=== PATIENT | female | born 1980 | race Caucasian/White ===

== ENCOUNTER 2016-12-23 18:18 | Emergency (ER) | payer MEDICAID, OTHER ==
[~2016-12-23] VITALS: Ht 149.9 cm; Wt 86.0 kg
[2016-12-23 18:45] VITALS: Ht 149.9 cm; Wt 86.0 kg
[2016-12-23 20:57] LABS: URINE BLOOD (Dip) POC Trace-intact (NEGATIVE)
[2016-12-23] MEDS ORDERED: ONDANSETRON (ODT) 4 MG TAB ODT STA (21:06)
--- NOTE | 2016-12-23 21:24 | ERD ---
ER Documentation Chief Complaint Date/Time DATE: 12/23/16 TIME: 21:21 Chief Complaint bilateral abd pain with sob x 2 days HPI This is a 36-year-old female who presents the emergency department today complaining of abdominal pain for the past 4 days and vomiting for the past 2 days. States her last bowel movement was today. Denies any dysuria. She has not taken any medication for the pain. . States she had her gallbladder removed in 2008. States that she lives in [place] Tuesday she went to [facility] they did laboratory work but did not tell her anything about her results. States she has drank some tea and Pedialyte. Denies any fevers or chills. Denies any cough. ROS All systems reviewed and are negative except as per history of present illness. Medications Home Meds Active Scripts Famotidine* (Pepcid*) 20 Mg Tablet, 20 MG PO BID for 14 Days, TAB Prov:SHANTA CAMPBELL PA-C 12/23/16 Ondansetron Hcl* (Zofran*) 4 Mg Tablet, 4 MG PO Q6H for NAUSEA AND/OR VOMITING, #30 TAB Prov:SHANTA CAMPBELL PA-C 12/23/16 Polyethylene Glycol* (Miralax*) 17 Gm Powd.pack, 17 GM PO DAILY, #10 Prov:SHANTA CAMPBELL PA-C 12/23/16 Hydrocodone/Acetaminophen (Cocoa 5-325 Tablet) 1 Each Tablet, 1 TAB PO Q6H Y for PAIN, #10 TAB Prov:SHANTA CAMPBELL PA-C 12/23/16 Reported Medications [None] No Conflict Check 10/17/10 Allergies Allergies: Coded Allergies: No Known Drug Allergy (Verified Allergy, Unknown, NONE, 12/23/16) PMhx/Soc History of Surgery: Yes (CSECTION, GALLBLADDER) Anesthesia Reaction: No Hx Neurological Disorder: No Hx Respiratory Disorders: No Hx Cardiac Disorders: No Hx Psychiatric Problems: No Hx Miscellaneous Medical Probl: No Hx Alcohol Use: No Hx Substance Use: No Hx Tobacco Use: No Smoking Status: Never smoker Physical Exam Vitals Vital Signs Date Time Temp Pulse Resp B/P Pulse Ox O2 Delivery O2 Flow Rate FiO2 12/23/16 18:45 98.2 97 17 109/58 97 Physical Exam Const: Obese, no acute distress Head: Atraumatic Eyes: Normal Conjunctiva ENT: Normal External Ears, Nose and Mouth. Neck: Full range of motion..~ No meningismus. Resp: Clear to auscultation bilaterally Cardio: Regular rate and rhythm, no murmurs Abd: Soft, epigastric, right upper quadrant, periumbilical tenderness non distended. Normal bowel sounds. No tenderness at McBurney's. Skin: No petechiae or rashes Back: No midline or flank tenderness. No CVA tenderness. Ext: No cyanosis, or edema Neur: Awake and alert Psych: Normal Mood and Affect Result Diagram: 12/23/16211412/23/162114 Results 24 hrs Laboratory Tests Test 12/23/16 20:55 12/23/16 20:57 12/23/16 21:15 Urine Color LT. YELLOW Urine Clarity CLEAR Urine pH 6.0 Urine Specific Helen 1.015 Urine Ketones NEGATIVE Urine Nitrite NEGATIVE Urine Bilirubin NEGATIVE Urine Urobilinogen 1.0 E.U./dL Urine Leukocyte Esterase NEGATIVE Urine Microscopic RBC 0-2/HPF Urine Microscopic WBC NONE SEEN/HPF Urine Squamous Epithelial Cells FEW Urine Calcium Oxalate Crystals MODERATE Urine Hemoglobin TRACE Urine Glucose NEGATIVE% Urine Total Protein NEGATIVE Bedside Urine pH (LAB) 7.0 Bedside Urine Protein (LAB) Negative Bedside Urine Glucose (UA) Negative Bedside Urine Ketones (LAB) Negative Bedside Urine Blood Trace-intact Bedside Urine Nitrite (LAB) Negative Bedside Urine Leukocyte Esterase (L Negative White Blood Count 10.710^3/ul Red Blood Count 4.2110^6/ul Hemoglobin 12.2g/dl Hematocrit 36.6% Mean Corpuscular Volume 86.9fl Mean Corpuscular Hemoglobin 29.0pg Mean Corpuscular Hemoglobin Concent 33.3g/dl Red Cell Distribution Width 13.1% Platelet Count 63561^3/UL Mean Platelet Volume 9.6fl Neutrophils % 58.3% Lymphocytes % 29.1% Monocytes % 9.6% Eosinophils % 2.1% Basophils % 0.5% Nucleated Red Blood Cells % 0.0/100WBC Neutrophils # 6.310^3/ul Lymphocytes # 3.110^3/ul Monocytes # 1.010^3/ul Eosinophils # 0.210^3/ul Basophils # 0.110^3/ul Nucleated Red Blood Cells # 0.010^3/ul Sodium Level 141mmol/L Potassium Level 4.1mmol/L Chloride Level 101mmol/L Carbon Dioxide Level 27mmol/L Anion Gap 17 Blood Urea Nitrogen 16mg/dl Creatinine 0.76mg/dl Glucose Level 101mg/dl Calcium Level 9.5mg/dl Total Bilirubin 0.2mg/dl Direct Bilirubin 0.00mg/dl Indirect Bilirubin 0.2mg/dl Aspartate Amino Transf (AST/SGOT) 39IU/L Alanine Aminotransferase (ALT/SGPT) 49IU/L Alkaline Phosphatase 79IU/L Total Protein 7.2g/dl Albumin 4.1g/dl Globulin 3.10g/dl Albumin/Globulin Ratio 1.32 Lipase 101U/L Current Medications Medications (Trade) Dose Ordered Sig/Aziza Route PRN Reason Start Time Stop Time Status Last Admin Dose Admin Famotidine (Pepcid) 20 mg ONCE ONCE PO 12/23/16 21:30 12/23/16 21:31 DC 12/23/16 21:15 Ondansetron HCl (Zofran Odt) 4 mg ONCE STAT ODT 12/23/16 21:06 12/23/16 21:08 DC 12/23/16 21:15 Acetaminophen/ Hydrocodone Bitart (Cocoa (5/325)) 1 tab ONCE ONCE PO 12/23/16 21:30 12/23/16 21:31 DC 12/23/16 21:15 DIAGNOSTIC IMAGING REPORT Patient: KIMBERLEE TORRES : 1980 Age: 36 Sex: F MR #: [id number] DOS: 12/23/162107 Ordering MD: SHANTA CAMPBELL PA-C Location: [facility] Room/Bed: PROCEDURE: CT abdomen and pelvis without intravenous contrast. CLINICAL INDICATION: Pain. TECHNIQUE: CT of the abdomen/pelvis was performed utilizing axial images with reconstructions in sagittal and coronal planes. The administered radiation dose is CTDI 20 mGy, DLP 1130 mGy-cm. COMPARISON: No pertinent prior examinations were submitted for comparison. FINDINGS: Visualized Chest: The visualized lung bases are clear. Abdomen: The spleen, pancreas, and adrenal glands are unremarkable. The liver is markedly, diffusely decreased in attenuation, compatible with hepatic steatosis. Prior cholecystectomy is noted. The kidneys are without hydronephrosis. Bilateral medullary calcinosis is noted along with numerous small and punctate nonobstructive intrarenal calculi. There is no evidence of bowel obstruction. The appendix is normal. No intra- abdominal free air is seen. There is no evidence of intra-abdominal adenopathy or free fluid. Pelvis: There is no evidence of pelvic adenopathy. The uterus and ovaries are without enlargement. The urinary bladder is unremarkable. There is no pelvic free fluid. Osseous structures: Unremarkable. IMPRESSION: No acute findings. Hepatic steatosis. Bilateral medullary calcinosis. Bilateral nephrolithiasis. RPTAT: HIKT .Masoud Rivers MD, MD Date Time Electronically viewed and signed by .Masoud Rivers MD, MD on 12/23/2016 22:17 .T/ CC: SHANTA CAMPBELL PA-C Procedures/[facility] This is a 36-year-old female who presents the emergency department today complaining of diffuse abdominal pain for the past 4 days as well as vomiting. Patient has been to an outside hospital and had laboratory work drawn yesterday however she was not told about any results. Patient had epigastric and right upper quadrant tenderness on physical exam as well as periumbilical tenderness. I did obtain laboratory work as well as a CT abdomen pelvis noncontrast. Patient already has history of a cholecystectomy. Laboratory work shows no elevated white blood cell count. Her hemoglobin is within normal limits. Platelets are within normal limits. Electrolytes are within normal limits. Glucose is within normal limits. Liver functions normal limits. Lipase within normal limits. UA is negative for infection per Urine test is negative. CT abdomen pelvis noncontrast shows no acute findings. There is hepatic steatosis and bilateral medullary calcinosis with bilateral small punctate nonobstructive intrarenal calculi. Appendix is normal. No evidence of bowel obstruction. No free air seen. No free fluid. There is no evidence of pelvic adenopathy. Uterus and ovaries are without enlargement. No pelvic free fluid. Patient has abdominal pain of uncertain etiology however it may also be viral related versus gastritis. Low suspicion for acute surgical abdomen. Patient was given Cocoa, Pepcid and Zofran here in the emergency department. I will give her prescription for home. At this time the patient is stable for discharge and outpatient management. Patient should follow up with their PCP in the next 1-2 days. They may return to the emergency department sooner for any persistent or worsening of symptoms. Patient understood and agreed with the plan. Departure Diagnosis: Primary Impression: Abdominal pain Abdominal location: generalized Qualified Code: R10.84 - Generalized abdominal pain Condition: Fair SHANTA CAMPBELL PA-C Dec 23, 2016 21:24
[2016-12-23] MEDS ORDERED: FAMOTIDINE 20 MG TAB PO ONE (21:30)
[2016-12-23] MEDS ORDERED: HYDROCODONE/APAP (5/325) TAB PO ONE (21:30)
[2016-12-23 21:44] LABS: ADD SCAN DIFF NO
[2016-12-23 21:46] LABS: BASOPHIL # 0.1 10^3/ul (0.0-0.1); BASOPHILS % 0.5 % (0.0-2.0); EOSINOPHILS # 0.2 10^3/ul (0.0-0.5); EOSINOPHILS % 2.1 % (0.0-7.0); HEMATOCRIT 36.6 % (37.0-47.0); HEMOGLOBIN 12.2 g/dl (12.0-16.0); LYMPHOCYTES # 3.1 10^3/ul (0.8-2.9); LYMPHOCYTES % 29.1 % (15.0-51.0); MEAN CORPUSCULAR HGB CONC 33.3 g/dl (32.0-37.0); MEAN CORPUSCULAR VOLUME 86.9 fl (82.0-101.0); MEAN PLATELET VOLUME 9.6 fl (7.4-10.4); MONOCYTES % 9.6 % (0.0-11.0); NEUTROPHIL # 6.3 10^3/ul (1.6-7.5); NEUTROPHILS % 58.3 % (39.0-77.0); PLATELET COUNT 334 10^3/UL (140-415); RED BLOOD COUNT 4.21 10^6/ul (4.20-5.40); RED CELL DISTRIBUTION WIDTH 13.1 % (11.5-14.5); WHITE BLOOD COUNT 10.7 10^3/ul (4.8-10.8)
[2016-12-23 22:02] LABS: ALBUMIN 4.1 g/dl (3.3-4.9); POTASSIUM 4.1 mmol/L (3.5-5.1)
[2016-12-23 22:04] LABS: BILIRUBIN,INDIRECT 0.2 mg/dl (0-1.1); BILIRUBIN,TOTAL 0.2 mg/dl (0.2-1.3); CREATININE 0.76 mg/dl (0.44-1.00)
[2016-12-23 22:05] LABS: ALBUMIN/GLOBULIN RATIO 1.32; CALCIUM 9.5 mg/dl (8.4-10.2); TOTAL PROTEIN 7.2 g/dl (6.1-8.1)
[2016-12-23 22:10] LABS: ADD UMIC YES; URINE BILIRUBIN (Dip) NEGATIVE (NEGATIVE); URINE BLOOD (Dip) TRACE (NEGATIVE); URINE COLOR LT. YELLOW (YELLOW); URINE GLUCOSE (Dip) NEGATIVE (NEGATIVE); URINE KETONES (Dip) NEGATIVE (NEGATIVE); URINE LEUKOCYTE ESTERASE (Dip) NEGATIVE (NEGATIVE); URINE NITRITE (Dip) NEGATIVE (NEGATIVE); URINE TOTAL PROTEIN (Dip) NEGATIVE (NEGATIVE); URINE UROBILINOGEN (Dip) 1.0 E.U./dL (0.1-1.0)
--- NOTE | 2016-12-23 22:17 | RADRPT ---
PROCEDURE: CT abdomen and pelvis without intravenous contrast. CLINICAL INDICATION: Pain. TECHNIQUE: CT of the abdomen/pelvis was performed utilizing axial images with reconstructions in s agittal and coronal planes. The administered radiation dose is CTDI 20 mGy, DLP 1130 mGy-cm. COMPARISON: No pertinent prior examinations were submitted for comparison. FINDINGS: Visualized Chest: The visualized lung bases are clear. Abdomen: The spleen, pancreas, and adrenal glands are unremarkable. The liver is markedly, diffusely decre ased in attenuation, compatible with hepatic steatosis. Prior cholecystectomy is noted. The kidneys are without hydronephrosis. Bilateral medullary calcinosis is noted along with numerous small and punctate nonobstructive intrarenal calculi. There is no evidence of bowel obstruction. The appendix is normal. No intra-abdominal free air is seen. There is no evidence of intra-abdominal adenopathy or free fluid. Pelvis: There is no evidence of pelvic adenopathy. The uterus and ovaries are without enlargement. The uri nary bladder is unremarkable. There is no pelvic free fluid. Osseous structures: Unremarkable. IMPRESSION: No acute findings. Hepatic steatosis. Bilateral medullary calcinosis. Bilateral nephrolithiasis. RPTAT: HIKT .Masoud Rivers MD, MD Date Time Electronically viewed and signed by .Masoud Rivers MD, MD on 12/23/2016 22:17 .T/
[2016-12-23 22:23] LABS: SQUAMOUS EPITHELIAL CELL,UR FEW; URINE RBCS 0-2 /HPF (0)
[2016-12-23] MEDS ORDERED: ONDA4TAB8 PO (22:38)
[2016-12-23] MEDS ORDERED: FAMO-18 PO (22:38)
[2016-12-23] MEDS ORDERED: POLY17PO6 PO (22:38)
[2016-12-23] MEDS ORDERED: HYDR-906 PO (22:38)
[2016-12-23 22:49] VITALS: BP 118/60; RESP 18; TEMP 98
== END 2016-12-23 22:50 | disposition home or self-care (01) ==
LOC: FTE 18:18
DX: R10.84 Generalized abdominal pain (principal)
CPT/HCPCS: 74176; 80053; 81001; 83690; 85025; Z7610; 36415; 81003